=== PATIENT | female | born 1970 | race Caucasian/White ===

== ENCOUNTER 2022-01-25 12:10 | Emergency (ER) | payer OTHER ==
[~2022-01-25] VITALS: Ht 154.9 cm; Wt 113.0 kg
[~2022-01-25 12:10] MED LIST: IBUPROFEN; NORCO; TORADOL
[2022-01-25] MEDS ORDERED: HYDROCODONE/ACETAMINOPHEN 5/325MG TABLET PO ONE (13:15)
[2022-01-25] MEDS ORDERED: HYDR-4001 MT (14:39)
[2022-01-25 15:15] VITALS: BP 126/75
== END 2022-01-25 15:16 | disposition home or self-care (01) ==
LOC: ER 12:10
DX: S09.8XXA Other specified injuries of head, initial encounter (principal); W18.39XA Other fall on same level, initial encounter; Y93.89 Activity, other specified; Y92.89 Other specified places as the place of occurrence of the external cause; Y99.8 Other external cause status; M79.18 Myalgia, other site; Z85.9 Personal history of malignant neoplasm, unspecified
CPT/HCPCS: 72170; 99284